=== PATIENT | male | born 1990 | race Caucasian/White ===

== ENCOUNTER 2023-07-26 20:16 | Emergency (ER) | payer OTHER, SELFPAY ==
--- NOTE | ~2023-07-26 | XR_ITS ---
EXAM: XR ankle RT min 3V DATE: 07/26/2023 21:06 HISTORY: fall twisted Rt ankle, pain laterally . COMPARISON: None available. FINDINGS: Normal mineralization. No fracture or dislocation. No lytic or blastic lesion. Joint space s are maintained. Achilles enthesopathy. No erosion or periosteal change. Soft tissues within normal limits. IMPRESSION: No acute osseous finding in the right ankle. Reviewed, dictated and finalized at location K.
[2023-07-26 20:49] VITALS: BP 116/78; PULSE 99; RESP 16; TEMP 36.6; O2SAT 99
[2023-07-26 21:57] VITALS: BP 129/89; PULSE 97; RESP 17; O2SAT 96
--- NOTE | 2023-07-26 22:17 | ED.GENADULT ---
HPI - General Adult General Chief complaint: Extremity Injury, Lower Stated complaint: right ankle pain Time Seen by Provider: 07/26/23 21:57 History of Present Illness HPI narrative: 33-year-old male present emergency department for evaluation of right ankle pain. Patient reports approximate 6 PM tonight he was walking and rolled his ankle while stepping off a curb. Patient denies any other pain or injury. Patient denies striking head denies loss of consciousness. Related Data Allergies Allergy/AdvReac Type Severity Reaction Status Date / Time hydrocodone AdvReac Itching Verified 07/26/23 21:51 CONTRAST DYE Allergy Unknown Itching Uncoded 07/26/23 21:51 Contrast Media Allergy Unknown Itching Uncoded 07/26/23 21:51 Review of Systems Review of Systems: All systems reviewed & are unremarkable except as noted in HPI and below Exam Narrative: APPEARANCE: Well appearing, no pain, no distress, well-nourished. HEAD: normocephalic, atraumatic. EYES: PERRLA/EOMI, conjunctivae clear. NOSE: Normal no drainage NECK: Supple. No adenopathy, no masses. RESPIRATORY: Airway patent, respirations nonlabored. Clear to auscultation bilaterally, no rales, rhonchi, wheezing. CARDIOVASCULAR: Regular rate and rhythm without murmurs rubs or gallops. ABDOMINAL: Soft, nontender, nondistended, normal bowel sounds MUSCULOSKELETAL: Moves all extremities. Right lateral malleolus tenderness to palpation NEURO: Alert. Cranial nerves II through XII intact. Grossly intact SKIN: Warm, dry. Normal Color Course Course Emergency Course: 33-year-old male present emergency department for evaluation of right ankle pain. X-rays were negative for acute fractures or dislocations. Patient was provided Guero wrap and crutches for ankle support limited weightbearing. Patient was updated the results of his work-up and plan for treatment at home and importance of close follow-up. All questions concerns were addressed. Vital Signs Vital signs: Vital Signs Temperature 97.9 F 07/26/23 20:49 Pulse Rate 99 07/26/23 20:49 Respiratory Rate 16 07/26/23 20:49 Blood Pressure 116/78 07/26/23 20:49 Pulse Oximetry 99 07/26/23 20:49 Oxygen Delivery Room Air 07/26/23 20:49 Temperature 97.9 F 07/26/23 20:49 Pulse Rate 97 07/26/23 21:57 Respiratory Rate 17 07/26/23 21:57 Blood Pressure 129/89 07/26/23 21:57 Pulse Oximetry 96 07/26/23 21:57 Oxygen Delivery Room Air 07/26/23 20:49 Medical Decision Making Differential Diagnosis Differential Diagnosis: Ankle sprain, ankle fracture Vital Signs Vital Signs: Vital Signs Temperature 97.9 F 07/26/23 20:49 Pulse Rate 99 07/26/23 20:49 Respiratory Rate 16 07/26/23 20:49 Blood Pressure 116/78 07/26/23 20:49 Pulse Oximetry 99 07/26/23 20:49 Oxygen Delivery Room Air 07/26/23 20:49 Temperature 97.9 F 07/26/23 20:49 Pulse Rate 97 07/26/23 21:57 Respiratory Rate 17 07/26/23 21:57 Blood Pressure 129/89 07/26/23 21:57 Pulse Oximetry 96 07/26/23 21:57 Oxygen Delivery Room Air 07/26/23 20:49 Discharge Plan Discharge Clinical Impression: Ankle sprain and strain Patient Disposition: Home, Self-Care Condition: Stable Instructions: Antibiotic Form, Ankle Sprain (DC), Crutch Instructions (ED) Additional Instructions: Guero wrap for comfort and support. Crutches for limited weightbearing. Tylenol and ibuprofen for pain control. Have close follow-up with your primary care physician Follow-up/Referrals: PHYSICIAN NOT ON STAFF,NONSTAFF [Primary Care Provider] -
== END 2023-07-26 22:34 | disposition home or self-care (01) ==
PROVIDERS: Emergency Provider Emergency Medicine
DX: S93.401A Sprain of unspecified ligament of right ankle, initial encounter (principal); S96.911A Strain of unspecified muscle and tendon at ankle and foot level, right foot, initial encounter; X50.0XXA Overexertion from strenuous movement or load, initial encounter
CPT/HCPCS: 73610; 99283